=== PATIENT | male | born 1985 | race Caucasian/White ===

== ENCOUNTER 2023-12-08 11:39 | Emergency (ER) | payer MEDICAID ==
[~2023-12-08] VITALS: Ht 170.2 cm; Wt 122.0 kg
[2023-12-08 11:46] VITALS: TEMP 99.7
[2023-12-08] MEDS: HYDROcodone/acetaminophen 10/325mg tab PO ONE (14:13)
[2023-12-08] MEDS: dexamethasone sod phosphate 10mg/ml inj IM STA (14:15)
[2023-12-08] MEDS ORDERED: METH4TAB81 PO ×2 (14:17→15:33)
[2023-12-08] MEDS ORDERED: HYDR-3973 PO ×2 (14:17→15:33)
[2023-12-08] MEDS: ketorolac trometh inj. 60 MG/2 ML VIAL IM ONE (14:29)
[2023-12-08 16:03] VITALS: BP 148/56; PULSE 92; RESP 16; O2SAT 98
== END 2023-12-08 16:07 | disposition home or self-care (01) ==
LOC: ER 11:39
DX: M54.50 Low back pain, unspecified (principal)
CPT/HCPCS: 72100; 96372; 99284; J1100; J1885